=== PATIENT | male | born 1950 | race Caucasian/White ===

== ENCOUNTER 2023-01-13 08:13 | Inpatient (IN) | payer OTHER ==
[~2023-01-13] VITALS: Ht 177.8 cm; Wt 102.1 kg
[2023-01-13] MEDS ORDERED: ACETAMINOPHEN 500 MG TABLET PO ONE (08:30)
[2023-01-13] MEDS ORDERED: GABAPENTIN 300 MG CAPSULE PO ONE (08:30)
[2023-01-13] MEDS ORDERED: GABAPENTIN 300 MG CAPSULE ONE (08:33)
[2023-01-13] MEDS ORDERED: ACETAMINOPHEN 500 MG TABLET ONE (08:33)
[2023-01-13] MEDS ORDERED: CEFAZOLIN SOD 2 GM in D5W 50 ML IV ONE (08:45)
[2023-01-13] MEDS ORDERED: fentaNYL CITRATE/PF 100 MCG/2 ML AMP ONE (11:00)
[2023-01-13] MEDS ORDERED: MIDAZOLAM HCL 2 MG/2 ML VIAL (VERSED) ONE (11:00)
[2023-01-13] MEDS ORDERED: LR 1,000 ML IV.SOLN IV ONE (11:00)
[2023-01-13] MEDS ORDERED: oxyCODONE HCL 5 MG TABLET PO PRN ×2 (11:00)
[2023-01-13] MEDS ORDERED: ONDANSETRON HCL 4 MG/2 ML VIAL ONE (11:00)
[2023-01-13] MEDS ORDERED: VANCOMYCIN HCL 1000 MG/VIAL IV ONE (11:00)
[2023-01-13] MEDS ORDERED: DESFLURANE 15 MIN GAS INH ONE (11:00)
[2023-01-13] MEDS ORDERED: ROCURONIUM BROMIDE 10 MG/ML (ZEMURON) ONE (11:00)
[2023-01-13] MEDS ORDERED: LORATADINE 10 MG TABLET PO PRN (11:00)
[2023-01-13] MEDS ORDERED: BUPIVACAINE /PF 0.25% 30 ML VIAL INJ ONE (11:00)
[2023-01-13] MEDS ORDERED: traMADol HCL HCL 50 MG TABLET (ULTRAM) PO PRN (11:00)
[2023-01-13] MEDS ORDERED: SUGAMMADEX SODIUM 200 MG/2 ML VIAL IV ONE (11:00)
[2023-01-13] MEDS ORDERED: DEXAMETHASONE SOD PHOSPHATE 4 MG/ML VIAL ONE (11:00)
[2023-01-13] MEDS ORDERED: PROPOFOL 200MG/ 20ML VIAL (DIPRIVAN) IV ONE (11:00)
[2023-01-13] MEDS ORDERED: TRANEXAMIC ACID 1,000 MG/10 ML VIAL ONE (11:00)
[2023-01-13] MEDS ORDERED: KETOROLAC TROMETHAMINE 30 MG VIAL ONE (11:00)
[2023-01-13] MEDS ORDERED: NS IRRIG SOLN 1000 ML IR ONE (11:00)
[2023-01-13] MEDS ORDERED: HYDROmorphone 1 MG/ML INJ. CARTRIDGE IVP PRN ×5 (11:00→12:15)
[2023-01-13] MEDS ORDERED: NS 1000 ML IV.SOLN IV ONE (11:00)
[2023-01-13] MEDS ORDERED: ONDANSETRON HCL 4 MG/2 ML VIAL IVP PRN (11:45)
[2023-01-13] MEDS ORDERED: METOCLOPRAMIDE HCL 10 MG/2 ML VIAL IVP PRN ×2 (12:15→13:45)
[2023-01-13] MEDS ORDERED: LR 1,000 ML IV SCH (12:15)
[2023-01-13] MEDS ORDERED: MEPERIDINE HCL/PF 25 MG/ML DISP.SYRIN IVP PRN (12:15)
[2023-01-13] MEDS ORDERED: LOSA100T4 PO (13:13)
[2023-01-13] MEDS ORDERED: OMEP20CA15 PO (13:13)
[2023-01-13] MEDS ORDERED: MAGN250T10 PO (13:13)
[2023-01-13] MEDS ORDERED: FINA5TAB3 PO (13:13)
[2023-01-13] MEDS ORDERED: PRIM50TA27 PO (13:13)
[2023-01-13] MEDS ORDERED: HYT1 PO (13:13)
[2023-01-13] MEDS ORDERED: BACL10TA PO (13:13)
[2023-01-13] MEDS ORDERED: CYCL10TA24 PO (13:13)
[2023-01-13] MEDS ORDERED: BISACODYL 10 MG/SUPPOSITORY RC PRN (13:45)
[2023-01-13] MEDS ORDERED: DIPHENHYDRAMINE HCL 25 MG CAPSULE PO PRN (13:45)
[2023-01-13] MEDS ORDERED: LACTULOSE 20 GM/30 ML UDC PO PRN (13:45)
[2023-01-13] MEDS ORDERED: NALOXONE HCL 0.4 MG/ML AMP (NARCAN) IVP PRN ×3 (13:45)
[2023-01-13] MEDS: ceFAZolin SODIUM 2 GM in D5W 50 ML IV SCH (16:09)
[2023-01-13] MEDS: KETOROLAC TROMETHAMINE 10 MG TABLET (TORADOL) PO SCH (16:11)
[2023-01-13] MEDS: ACETAMINOPHEN 500 MG TABLET PO SCH (16:11)
[2023-01-13 20:00] VITALS: BP_SYST 122; PULSE 110; RESP 18; TEMP 97.8; O2SAT 98
[2023-01-13] MEDS: SENNOSIDES/DOCUSATE SODIUM 1 TAB TABLET(SENOKOT-S) PO SCH (20:56)
[2023-01-14] VITALS: BP_SYST 102; PULSE 88; RESP 18; TEMP 98.6; O2SAT 96
[2023-01-14] MEDS: KETOROLAC TROMETHAMINE 10 MG TABLET (TORADOL) PO SCH ×2 (00:17→08:29)
[2023-01-14] MEDS: ACETAMINOPHEN 500 MG TABLET PO SCH ×2 (00:17→08:29)
[2023-01-14] MEDS: ceFAZolin SODIUM 2 GM in D5W 50 ML IV SCH ×2 (00:18→08:30)
[2023-01-14 06:07] LABS: HEMATOCRIT 43.3 % (36-54); HEMOGLOBIN 14.3 g/dL (14.0-18.0)
[2023-01-14 06:34] LABS: ANION GAP 12 (5-15); CALCIUM 8.5 mg/dL (8.4-11.0); CHLORIDE 101 mmol/L (98-107); CREATININE 1.52 mg/dL (0.55-1.30); GLUCOSE 122 mg/dL (74-106); UREA NITROGEN, BLOOD 19 mg/dL (8-21)
[2023-01-14 07:58] VITALS: BP_SYST 118; PULSE 77; RESP 18; TEMP 97.7; O2SAT 96
[2023-01-14 08:00] VITALS: O2SAT 98
[2023-01-14] MEDS: SENNOSIDES/DOCUSATE SODIUM 1 TAB TABLET(SENOKOT-S) PO SCH (08:37)
[2023-01-14] MEDS ORDERED: PRIMIDONE 50 MG TABLET PO SCH (09:00)
[2023-01-14] MEDS ORDERED: OMEPRAZOLE Non-Formulary 20 MG CAPSULE.DR PO SCH (09:00)
[2023-01-14] MEDS ORDERED: LOSARTAN POTASSIUM 50 MG TABLET (COZAAR) PO SCH (09:00)
[2023-01-14] MEDS ORDERED: ASPIRIN 81 MG TAB.CHEW PO SCH (09:00)
[2023-01-14] MEDS ORDERED: PANTOPRAZOLE SODIUM 40 MG TAB PO SCH (09:00)
[2023-01-14] MEDS ORDERED: CELECOXIB 200 MG CAPSULE PO SCH (11:00)
[2023-01-14 11:12] VITALS: BP_SYST 118; PULSE 89; RESP 18; TEMP 97.8; O2SAT 98
[2023-01-14 11:53] VITALS: BP_SYST 118; PULSE 89; RESP 16; TEMP 97.8; O2SAT 98
[2023-01-15] MEDS ORDERED: OMEPRAZOLE 20 MG PO SCH (07:00)
[2023-01-19] MEDS ORDERED: THOR25 PO (05:38)
[2023-01-19] MEDS ORDERED: CEFA250S32 PO ×2 (09:13→15:52)
[2023-01-19] MEDS ORDERED: IBUP-1970 PO (14:34)
[2023-01-19] MEDS ORDERED: CEFADROXIL PO (15:48)
[2023-01-19] MEDS ORDERED: OXYIR5 PO (15:52)
[2023-01-20] MEDS ORDERED: SUCR1TAB2 PO (12:56)
== END 2023-01-14 12:35 | disposition home health service (06) | DRG 483 ==
LOC: SMU 08:13
PROVIDERS: ADMIT Orthopaedic Surgery Sports Medicine; ATTEND Orthopaedic Surgery Sports Medicine
PROC: 0RRJ00Z Replacement of Right Shoulder Joint with Reverse Ball and Socket Synthetic Substitute, Open Approach (ICD-10-PCS; principal; 2023-01-13 11:09)
DX: M19.011 Primary osteoarthritis, right shoulder (principal)
CPT/HCPCS: 36415; 76001; 80048; 83051; 85014; 87081; 88304; 88311; 96379; J0690; J1100; J1885; J2405; J2704; J3010; J3370; J3465; J3490; J7030; J7060; J7120